=== PATIENT | male | born 1975 | race Hispanic/Latino ===

== ENCOUNTER 2022-05-07 16:38 | Inpatient (IN) | payer OTHER ==
[~2022-05-07] VITALS: Ht 180.3 cm; Wt 131.6 kg
[2022-05-07] MEDS ORDERED: 0.9%NACL 1000ML 1,000 ML IV ONE (17:00)
[2022-05-07] MEDS ORDERED: GABAPENTIN 300 MG CAPSULE ONE (17:04)
[2022-05-07 17:21] LABS: BASOPHILS % (AUTO) 0.4 % (0.0-5.0); EOSINOPHILS % (AUTO) 0.1 % (0.0-8.0); HEMATOCRIT 42.1 % (42-54); LYMPHOCYTES % (AUTO) 9.4 % (21.0-51.0); MEAN CORPUSCULAR HEMOGLOBIN 27.1 pg (27.0-33.0); MEAN CORPUSCULAR VOLUME 82.1 fL (79-99); MONOCYTES % (AUTO) 8.5 % (3.0-13.0); NEUTROPHILS % (AUTO) 81.1 % (40.0-77.0); PLATELET COUNT (AUTO) 222 K/uL (130-400); RED BLOOD CELL COUNT(AUTO) 5.13 MIL/uL (4.50-6.20); RED CELL DISTRIBUTION WIDTH 14.8 % (11.0-15.5); WHITE BLOOD COUNT (AUTO) 13.3 K/uL (4.8-10.8)
[2022-05-07 17:30] LABS: CARBON DIOXIDE 23 mmol/L (21-32); CHLORIDE 98 mmol/L (101-111); CREATININE 2.9 mg/dL (0.5-1.5); GLOMERULAR FILTR. RATE CALC 25 mL/min (>60); GLUCOSE,RANDOM 121 mg/dL (70-105); POTASSIUM 4.5 mmol/L (3.5-5.1); SODIUM SERUM 132 mmol/L (136-145); UREA NITROGEN, BLOOD 20 mg/dL (7-18)
[2022-05-07] MEDS ORDERED: GABAPENTIN 300 MG CAPSULE PO SCH (17:30)
[2022-05-07 17:35] LABS: ALANINE AMINOTRANSFERASE 26 U/L (12-78); ALBUMIN 3.5 g/dL (3.5-5.0); ALCOHOL, BLOOD < 3 mg/dL (0-10); ASPARTATE AMINOTRANSFERASE 23 U/L (10-37); CREATINE KINASE, TOTAL 110 U/L (21-232); TOTAL PROTEIN, SERUM 8.5 g/dL (6.0-8.3)
[2022-05-07 17:37] LABS: SALICYLATE < 2.8 mg/dL (2.8-20.0)
[2022-05-07 17:38] LABS: ACETAMINOPHEN < 1 mcg/mL (10-29)
[2022-05-07 18:32] LABS: APPEARANCE,URINE CLOUDY (CLEAR); BILIRUBIN,URINE MODERATE (NEGATIVE); COLOR,URINE YELLOW (YELLOW); GLUCOSE, URINE (UA) NEGATIVE (NEGATIVE); KETONES,URINE 5 mg/dL (NEGATIVE); LEUKOCYTE ESTERASE ,URINE NEGATIVE (NEGATIVE); NITRATE,URINE POSITIVE (NEGATIVE); OCCULT BLOOD,URINE NEGATIVE (NEGATIVE); PH,URINE 5.5 (5.0-8.0); PROTEIN,URINE 100 mg/dL (NEGATIVE)
[2022-05-07 18:41] LABS: AMPHET/METH SCREEN,URINE NEGATIVE (NEGATIVE); BENZODIAZEPINES SCREEN,URINE NEGATIVE (NEGATIVE); CANNABINOID SCREEN,URINE NEGATIVE (NEGATIVE); COCAINE SCREEN,URINE NEGATIVE (NEGATIVE); PHENCYCLIDINE SCREEN,URINE NEGATIVE (NEGATIVE)
[2022-05-07 18:42] LABS: RBC,URINE 0-1 /HPF (0-1)
[2022-05-07 18:43] LABS: BACTERIA,URINE Moderate /HPF (None Seen); MUCUS,URINE Rare LPF (None Seen); SQUAMOUS EPITHELIAL CELL,UR Few /HPF (0-2)
[2022-05-07 20:25] LABS: SODIUM,URINE RANDOM 36 mmol/l (40-220)
[2022-05-07] MEDS ORDERED: ONDANSETRON 4MG INJ IV PRN (20:30)
[2022-05-07] MEDS ORDERED: ACETAMINOPHEN 325 MG TAB PO PRN (20:30)
[2022-05-07 20:32] LABS: CREATININE,URINE RANDOM 488 mg/dL (30-135)
[2022-05-07] MEDS: ZOSYN 3.375GM+NS 50ML 50 ML IV SCH (21:28)
[2022-05-07] MEDS: HEPARIN 5,000 UNIT VIAL SQ SCH (21:28)
[2022-05-07] MEDS: 0.9%NACL 1000ML 1,000 ML IV SCH (21:28)
[2022-05-08] VITALS (8 sets, daily range): BP systolic 114–168; BP diastolic 62–102
[2022-05-08 04:24] LABS: BASOPHILS % (AUTO) 0.4 % (0.0-5.0); EOSINOPHILS % (AUTO) 1.5 % (0.0-8.0); HEMATOCRIT 37.9 % (42-54); LYMPHOCYTES % (AUTO) 25.3 % (21.0-51.0); MEAN CORPUSCULAR HEMOGLOBIN 26.9 pg (27.0-33.0); MEAN CORPUSCULAR HGB CONC 32.2 g/dL (32.0-36.0); MEAN CORPUSCULAR VOLUME 83.5 fL (79-99); MONOCYTES % (AUTO) 9.6 % (3.0-13.0); NEUTROPHILS % (AUTO) 62.9 % (40.0-77.0); PLATELET COUNT (AUTO) 195 K/uL (130-400); RED BLOOD CELL COUNT(AUTO) 4.54 MIL/uL (4.50-6.20); RED CELL DISTRIBUTION WIDTH 14.9 % (11.0-15.5); WHITE BLOOD COUNT (AUTO) 9.4 K/uL (4.8-10.8)
[2022-05-08 04:46] LABS: CREATININE 1.8 mg/dL (0.5-1.5); MAGNESIUM 2.3 mg/dL (1.80-2.40); PHOSPHORUS 4.3 mg/dL (2.5-4.9); POTASSIUM 3.9 mmol/L (3.5-5.1)
[2022-05-08] MEDS: ZOSYN 3.375GM+NS 50ML 50 ML IV SCH ×3 (05:33→21:11)
[2022-05-08] MEDS: 0.9%NACL 1000ML 1,000 ML IV SCH ×2 (06:30→16:30)
[2022-05-08] MEDS: HEPARIN 5,000 UNIT VIAL SQ SCH ×3 (08:17→21:07)
[2022-05-08] MEDS: FAMOTIDINE 20MG TAB PO SCH (08:18)
[2022-05-08] MEDS: GABAPENTIN 300 MG CAPSULE PO SCH ×3 (08:18→21:11)
[2022-05-09] MEDS ORDERED: CLONIDINE HCL 0.1 MG TABLET PO ONE (01:00)
[2022-05-09 04:34] VITALS: BP 159/87
[2022-05-09] MEDS: 0.9%NACL 1000ML 1,000 ML IV SCH (04:35)
[2022-05-09] MEDS: ZOSYN 3.375GM+NS 50ML 50 ML IV SCH (04:35)
[2022-05-09 05:15] LABS: BASOPHILS % (AUTO) 0.5 % (0.0-5.0); EOSINOPHILS % (AUTO) 1.8 % (0.0-8.0); HEMATOCRIT 38.9 % (42-54); LYMPHOCYTES % (AUTO) 22.9 % (21.0-51.0); MEAN CORPUSCULAR HEMOGLOBIN 26.5 pg (27.0-33.0); MEAN CORPUSCULAR HGB CONC 31.6 g/dL (32.0-36.0); MEAN CORPUSCULAR VOLUME 83.8 fL (79-99); MONOCYTES % (AUTO) 7.8 % (3.0-13.0); NEUTROPHILS % (AUTO) 66.7 % (40.0-77.0); PLATELET COUNT (AUTO) 221 K/uL (130-400); RED BLOOD CELL COUNT(AUTO) 4.64 MIL/uL (4.50-6.20); RED CELL DISTRIBUTION WIDTH 14.6 % (11.0-15.5); WHITE BLOOD COUNT (AUTO) 8.7 K/uL (4.8-10.8)
[2022-05-09 05:44] LABS: ALBUMIN 2.7 g/dL (3.5-5.0); CREATININE 1.3 mg/dL (0.5-1.5); POTASSIUM 3.9 mmol/L (3.5-5.1); TOTAL PROTEIN, SERUM 7.4 g/dL (6.0-8.3)
[2022-05-09 08:00] VITALS: BP 181/99
[2022-05-09] MEDS: GABAPENTIN 300 MG CAPSULE PO SCH (09:35)
[2022-05-09] MEDS: FAMOTIDINE 20MG TAB PO SCH (09:35)
[2022-05-09] MEDS: HEPARIN 5,000 UNIT VIAL SQ SCH (09:39)
[2022-05-09] MEDS ORDERED: CEFD300C3 PO (11:04)
== END 2022-05-09 12:00 | disposition home or self-care (01) | DRG 683 ==
LOC: EDH 16:38 → EDHIP 16:39 → 4CH 23:53
PROVIDERS: ADMIT Hospitalist; ATTEND Hospitalist
DX: N17.9 Acute kidney failure, unspecified (principal); N39.0 Urinary tract infection, site not specified; Z20.822 Contact with and (suspected) exposure to COVID-19; E86.0 Dehydration; D72.829 Elevated white blood cell count, unspecified; F14.10 Cocaine abuse, uncomplicated; F15.10 Other stimulant abuse, uncomplicated; F20.9 Schizophrenia, unspecified; F31.9 Bipolar disorder, unspecified; G62.9 Polyneuropathy, unspecified; I10 Essential (primary) hypertension; Z91.14 Patient's other noncompliance with medication regimen
CPT/HCPCS: 36415; 71045; 76770; 80048; 80053; 80305; 81001; 82550; 82570; 83605; 83735; 84100; 84145; 84300; 84484; 85025; 87040; 87088; 87635; 93005; C9803; G0378; G0481; J1644; J2543; J7030